=== PATIENT | female | born 1970 | race Caucasian/White ===

== ENCOUNTER 2024-09-18 11:44 | Emergency (ER) | payer BC, SELFPAY ==
--- NOTE | ~2024-09-18 | XR_ITS ---
EXAMINATION: XR wrist LT min 3V, XR wrist RT min 3V DATE: 09/18/2024 12:29 INDICATION: Bilateral wrist pain TECHNIQUE: 1. Posteroanterior, ulnar deviation, oblique, and lateral views of the left wrist were obtained. 2. Posteroanterior, ulnar deviation, oblique, and lateral views of the right wrist were obtained. COMPARISON: none FINDINGS: Views osteopenia. Normal alignment at the bilateral wrists and carpi. No fracture. Polyarticular oste oarthritis characterized by nonuniform joint space narrowing and/or osteophyte formation. On the left is severe at the first carpometacarpal joint and moderate at the second carpal metacarpal, midcarpal , distal radioulnar, radiocarpal and triscaphe joints and mild at the remaining carpal metacarpal hipolito nts. On the left this is moderate severity at the first carpometacarpal and triscaphe and radiocarpal joints and mild at the distal radioulnar, first metacarpophalangeal and several of the remaining car pal metacarpal joints. There are prominent erosions at the bilateral ulnar styloid processes. Soft ti ssues are unremarkable. IMPRESSION: 1. Moderate to severe polyarticular osteoarthritis at the bilateral wrists and carpi. 2. Erosions at the bilateral ulnar styloid processes suggesting superimposed inflammatory arthritis s uch as rheumatoid arthritis or crystalline arthritis such as gout. Reviewed, dictated and finalized at location A. [employer] IN[employer]ER IMPRESSION: 1. Moderate to severe polyarticular osteoarthritis at the bilateral wrists and carpi. 2. Erosions at the bilateral ulnar styloid processes suggesting superimposed in flammatory arthritis such as rheumatoid arthritis or crystalline arthritis such as gout.
--- NOTE | 2024-09-18 11:50 | ED_ITS ---
HPI - General Adult General Chief complaint: Extremity Problem,Nontraumatic Stated complaint: both wrists painful, right foot painful Time Seen by Provider: 09/18/24 12:03 Source: patient and RN notes reviewed Mode of arrival: ambulatory Limitations: no limitations History of Present Illness HPI narrative: 53-year-old female presents to the [facility] with complaints of bilateral wrist pain and right plantar foot discomfort. Patient reports the wrist pain has been going on for approximately 6 months. Attributes to someone putting extra pressure on her wrists well try to get out of bed back in January. Patient also with a right plantar foot discomfort, pain to the arch. Wears poor support of shoes Has taken Tylenol, ibuprofen. Related Data Allergies Allergy/AdvReac Type Severity Reaction Status Date / Time codeine Allergy N/V Verified 09/18/24 12:21 Review of Systems Review of Systems: All systems reviewed & are unremarkable except as noted in HPI and below Constitutional: Constitutional: Reports no additional constitutional complaints ENT: Reports system reviewed and no additional complaints, except as documented Cardiovascular: Cardiovascular: Reports no additional cardiovascular complaints, Denies chest pain and Denies dyspnea Respiratory: Respiratory: Reports no additional respiratory complaints, Denies chest congestion, Denies cough and Denies dyspnea Musculoskeletal: Musculoskeletal: Reports as per HPI Integumentary/Breasts: Skin/Breast: Reports system reviewed and no additional complaints, except as docu PMFSH Comments At the time of my signature, I reviewed and agree with the nursing past medical, surgical, social, and family history. There is no relevant family history pe rtinent to the patient complaint. Exam Const: General: cooperative, healthy appearing, comfortable, no acute distress, well developed, alert and well nourished Nutritional Appearance: well nourished Orientation/consciousness: patient oriented x3 Limitations: no limitations HENMT: Head: normal to inspection Eyes: General: appearance normal, both eyes and all related structures Alignment and Position: alignment normal Neck: Neck: normal visual inspection, full ROM, no lymphadenopathy and no meningeal signs Chest: Chest palpation & inspection: normal inspection of the chest Resp: Effort & Inspection: normal respiratory effort and able to speak in complete sentences Cardio: Rate: regular rate Skin: General skin exam: normal color and no rashes or lesions noted Neuro: General: patient oriented x3, gait normal, moves all extremities and no meningeal signs Cognition (Neuro): normal cognition Speech: normal speech Gait exam (Neuro): Normal gait present Extrem: General: normal to inspection, full ROM, capillary refill normal and normal gait Right upper extremity: wrist tenderness (Generalized), swelling (Mild, generalized), normal ROM, normal vascular exam and radial pulse present; no unusual warmth, no abrasions, no lacerations, no ecchymosis and no deformity Left upper extremity: wrist tenderness (Generalized), swelling (Generalized), normal ROM, normal vascular exam and radial pulse present; no abrasions, no lacerations, no ecchymosis, no crepitus, no foreign bodies, no penetrating wound and no deformity Right lower extremity: foot Details: tenderness Location: of the plantar foot Location: other (Midfoot) Psych: Appearance: grossly normal and well kempt Mental Status: mental status grossly normal Speech and movement: Normal speech and movement present and Clear speech present Affect: normal affect Attitude: cooperative Course Course Level of Care: Express Care Visit Vital Signs Vital signs: Vital Signs Temperature 98.1 F 09/18/24 12:04 Pulse Rate 85 09/18/24 12:04 Respiratory Rate 16 09/18/24 12:04 Blood Pressure 169/83 H 09/18/24 12:04 Pulse Oximetry 100 09/18/24 12:04 Oxygen Delivery Room Air 09/18/24 12:04 Temperature 98.1 F 09/18/24 12:04 Pulse Rate 85 09/18/24 12:04 Respiratory Rate 16 09/18/24 12:04 Blood Pressure 169/83 H 09/18/24 12:04 Pulse Oximetry 100 09/18/24 12:04 Oxygen Delivery Room Air 09/18/24 12:04 Reviewed Medical Decision Making MDM Narrative Medical decision making narrative: Patient sitting comfortably in exam room. Nontoxic, vitals stable. Patient in no acute distress Patient presents for bilateral wrist pain since January, months Wrist showed no acute findings, significant severe polyarticular osteoarthritis, concerns for RA, referred patient to a primary for further evaluation Patient with right plantar foot, consistent with plantar fasciitis Discharge instructions reviewed with patient, as well as provided in writing per nursing staff. The instructions also include specific and strict return/GO TO THE ER as well as f/u information. All questions have been answered, and the patient deny any further questions with discharge and discharge plan. Some parts of this dictation were generated by voice recognition software and may contain typographical and/or grammatical inaccuracies. Differential Diagnosis Differential Diagnosis: Arthritis, fractures, strain, sprain Medical Records Medical records reviewed: Yes I reviewed the external patient's medical records. Vital Signs Vital Signs: Vital Signs Temperature 98.1 F 09/18/24 12:04 Pulse Rate 85 09/18/24 12:04 Respiratory Rate 16 09/18/24 12:04 Blood Pressure 169/83 H 09/18/24 12:04 Pulse Oximetry 100 09/18/24 12:04 Oxygen Delivery Room Air 09/18/24 12:04 Temperature 98.1 F 09/18/24 12:04 Pulse Rate 85 09/18/24 12:04 Respiratory Rate 16 09/18/24 12:04 Blood Pressure 169/83 H 09/18/24 12:04 Pulse Oximetry 100 09/18/24 12:04 Oxygen Delivery Room Air 09/18/24 12:04 Reviewed Lab Data Lab results reviewed: Yes I reviewed the patient's lab results. Labs: Reviewed Imaging Data Radiologist's impression: EXAMINATION: XR wrist LT min 3V, XR wrist RT min 3V DATE: 09/18/2024 12:29 INDICATION: Bilateral wrist pain TECHNIQUE: 1. Posteroanterior, ulnar deviation, oblique, and lateral views of the left wrist were obtained. 2. Posteroanterior, ulnar deviation, oblique, and lateral views of the right wrist were obtained. COMPARISON: none FINDINGS: Views osteopenia. Normal alignment at the bilateral wrists and carpi. No fracture. Polyarticular osteoarthritis characterized by nonuniform joint space narrowing and/or osteophyte formation. On the left is severe at the first carpometacarpal joint and moderate at the second carpal metacarpal, midcarpal, distal radioulnar, radiocarpal and triscaphe joints and mild at the remaining carpal metacarpal joints. On the left this is moderate severity at the first carpometacarpal and triscaphe and radiocarpal joints and mild at the distal radioulnar, first metacarpophalangeal and several of the remaining carpal metacarpal joints. There are prominent erosions at the bilateral ulnar styloid processes. Soft tissues are unremarkable. IMPRESSION: 1. Moderate to severe polyarticular osteoarthritis at the bilateral wrists and carpi. 2. Erosions at the bilateral ulnar styloid processes suggesting superimposed inflammatory arthritis such as rheumatoid arthritis or crystalline arthritis such as gout. Critical Care Time Critical Care Time Critical Care Time: No Discharge Plan Discharge Clinical Impression: Polyarticular osteoarthritis, Plantar fasciitis of right foot Patient Disposition: Home, Self-Care Condition: Stable Instructions: Antibiotic Form, Plantar Fasciitis (ED), Osteoarthritis (DC), Plantar Fasciitis Exercises (ED) Additional Instructions: It list primary care providers was given to you for [facility]. Start calling today for a appointment. It is recommended you have a further workup in regards to the osteoarthritis in your hands and wrist. You can alternate Motrin and Tylenol as needed for discomfort Today your blood pressure was 169/83. It is recommended you follow-up with primary care provider for further evaluation Please read hand out in regards to plantar fasciitis. For new or worsening symptoms go directly to the emergency room Patient Language: Togolese Follow-up/Referrals: PHYSICIAN,VIDEO SYSTEMS ENGINEER [Primary Care Provider] - Time of Disposition: 12:43
[2024-09-18 12:04] VITALS: BP 169/83; PULSE 85; RESP 16; TEMP 36.7; O2SAT 100
== END 2024-09-18 12:49 | disposition home or self-care (01) ==
PROVIDERS: Emergency Provider Nurse Practitioner
DX: M19.032 Primary osteoarthritis, left wrist (principal); M19.031 Primary osteoarthritis, right wrist; M72.2 Plantar fascial fibromatosis
CPT/HCPCS: 73110; 99204; G0463